=== PATIENT | male | born 1980 | race Caucasian/White ===

== ENCOUNTER 2021-07-13 00:41 | Observation (INO) | payer OTHER ==
[~2021-07-13] VITALS: Ht 182.9 cm; Wt 108.9 kg
[2021-07-13 04:20] LABS: HEMOGLOBIN 14.7 gm/dl (14.0-17.5); RED BLOOD COUNT 4.41 M/UL (4.20-5.50); WHITE BLOOD COUNT 8.7 K/UL (4.5-11.0)
[2021-07-13 04:26] LABS: BUN/CREATININE RATIO 18 (0-10)
[2021-07-13 05:06] LABS: HEMOGLOBIN 12.3 gm/dl (14.0-17.5)
[2021-07-13] MEDS ORDERED: BUPRENORPHIN-N1 EACH SL (11:43)
[2021-07-13] MEDS ORDERED: FOLIC ACID1 MG PO (11:44)
[2021-07-13] MEDS ORDERED: IRON325 M1 PO (11:44)
[2021-07-13] MEDS ORDERED: VITAMIN D325 MCG PO (11:44)
[2021-07-13] MEDS ORDERED: MAGNESIUM250 M1 PO (11:45)
[2021-07-13] MEDS ORDERED: CALCIUM CARBON600 MG PO (11:45)
[2021-07-13] MEDS ORDERED: VITAMIN B-650 MG PO (11:45)
[2021-07-13] MEDS ORDERED: THIAMINE HCL100 MG PO (11:46)
[2021-07-13] MEDS ORDERED: OMEGA-3 1,0001 EACH PO (11:46)
[2021-07-13] MEDS ORDERED: VITAMIN B-12500 MCG PO (11:46)
[2021-07-13 12:18] LABS: RED BLOOD COUNT 4.6 M/UL (4.20-5.50)
[2021-07-13 12:19] LABS: HEMOGLOBIN 14.9 gm/dl (14.0-17.5); WHITE BLOOD COUNT 3.7 K/UL (4.5-11.0)
--- NOTE | 2021-07-13 15:54 | NUR ---
SPOKE WITH DR QUINONES RE: PT HAVING A LOT OF BLOODY VOMITING AND BLOODY STOOLS, HE INFORMED ME THAT AN EGD AND COLONOSCOPY WAS SCHEDULED FRO AROUND 5 P.M. TO CALL [facility] AND THEY WOULD KNOW MORE ABOUT IT.
--- NOTE | 2021-07-13 19:45 | NUR ---
REPORT RECEIVED FROM ENDO; PATIENT ARRIVED ON FLOOR C/O PAIN AND HUNGER. INFORMED PATIENT HE COULD HAVE ICE CHIPS AND TYLENOL. INSTRUCTED PT TO CALL FOR WANTS/NEEDS AND PT VERBALLY AGREED.
[2021-07-14 08:31] LABS: HEMOGLOBIN 10.1 gm/dl (14.0-17.5); RED BLOOD COUNT 3.12 M/UL (4.20-5.50); WHITE BLOOD COUNT 8.2 K/UL (4.5-11.0)
[2021-07-14] MEDS ORDERED: PROTONIX 40 MG40 M1 PO (08:33)
[2021-07-14 10:26] LABS: BUN/CREATININE RATIO 24 (0-10)
== END 2021-07-14 16:35 | disposition home or self-care (01) ==
LOC: ER1 00:41 → CDU 05:05 → PROG CARE 15:47
PROVIDERS: Emergency Medicine; Internal Medicine; Internal Medicine Gastroenterology; ADMIT Internal Medicine
PROC: XW0G886 Introduction of Mineral-based Topical Hemostatic Agent into Upper GI, Via Natural or Artificial Opening Endoscopic, New Technology Group 6 (ICD-10-PCS; principal; 2021-07-13 17:56)
DX: K29.71 Gastritis, unspecified, with bleeding (principal); K25.4 Chronic or unspecified gastric ulcer with hemorrhage; K21.9 Gastro-esophageal reflux disease without esophagitis; S36.33XA Laceration of stomach, initial encounter; D62 Acute posthemorrhagic anemia; B19.20 Unspecified viral hepatitis C without hepatic coma; B19.10 Unspecified viral hepatitis B without hepatic coma; F17.210 Nicotine dependence, cigarettes, uncomplicated; E66.9 Obesity, unspecified; M25.50 Pain in unspecified joint; Z20.822 Contact with and (suspected) exposure to COVID-19; Z79.899 Other long term (current) drug therapy; X58.XXXA Exposure to other specified factors, initial encounter
CPT/HCPCS: 36600; 71260; 80048; 80053; 81001; 82150; 82803; 83540; 83550; 83690; 83735; 85014; 85018; 85025; 85027; 85610; 85730; 86850; 86900; 86901; 86920; 96365; 96366; 96375; 99285; C9113; G0378; J0171; J0461; J2060; J2354; J2405; J2704; J2765; J7030; Q9967; U0002

== ENCOUNTER 2021-07-17 22:49 | Emergency (ER) | payer OTHER ==
[~2021-07-17 22:49] MED LIST: BUPRENORPHIN-N1 EACH SL; CALCIUM CARBON600 MG PO; FOLIC ACID1 MG PO; IRON325 M1 PO; MAGNESIUM250 M1 PO; OMEGA-3 1,0001 EACH PO; PROTONIX 40 MG40 M1 PO; THIAMINE HCL100 MG PO; VITAMIN B-12500 MCG PO; VITAMIN B-650 MG PO; VITAMIN D325 MCG PO
[2021-07-18 00:14] LABS: HEMOGLOBIN 9.7 gm/dl (14.0-17.5); RED BLOOD COUNT 2.92 M/UL (4.20-5.50); WHITE BLOOD COUNT 6.5 K/UL (4.5-11.0)
[2021-07-18 00:44] LABS: BUN/CREATININE RATIO 16 (0-10)
[2021-07-18] MEDS ORDERED: COLACE 100MG C100 MG PO (05:40)
[2021-07-18] MEDS ORDERED: STOOL SOFTENER240 MG PO (05:40)
[2021-07-18] MEDS ORDERED: IRON 100 PLUS1 EACH PO (05:40)
== END 2021-07-18 05:48 | disposition home or self-care (01) ==
LOC: ER1 22:49
PROVIDERS: Physician Assistant
DX: D64.9 Anemia, unspecified (principal); F17.200 Nicotine dependence, unspecified, uncomplicated; J45.909 Unspecified asthma, uncomplicated
CPT/HCPCS: 71045; 80053; 81001; 82550; 82553; 83874; 83880; 84484; 85025; 85379; 85610; 85730; 99285; Q9967

== ENCOUNTER 2021-07-28 02:08 | Emergency (ER) | payer OTHER ==
[~2021-07-28 02:08] MED LIST changes: +COLACE 100MG C100 MG PO; +IRON 100 PLUS1 EACH PO; +STOOL SOFTENER240 MG PO
[2021-07-28 03:24] LABS: HEMOGLOBIN 9.7 gm/dl (14.0-17.5); RED BLOOD COUNT 3.04 M/UL (4.20-5.50); WHITE BLOOD COUNT 7.3 K/UL (4.5-11.0)
[2021-07-28 03:39] LABS: BUN/CREATININE RATIO 16 (0-10)
[2021-07-28] MEDS ORDERED: HEMATINIC-FOLI1 EACH PO (04:28)
== END 2021-07-28 04:30 | disposition home or self-care (01) ==
LOC: ER1 02:08
PROVIDERS: Family Medicine
DX: L85.3 Xerosis cutis (principal); D64.9 Anemia, unspecified; F11.90 Opioid use, unspecified, uncomplicated; K21.9 Gastro-esophageal reflux disease without esophagitis; Z87.19 Personal history of other diseases of the digestive system; Z79.899 Other long term (current) drug therapy
CPT/HCPCS: 80053; 82550; 82553; 83874; 84484; 85025; 93005; 99283